=== PATIENT | male | born 1950 | race Caucasian/White ===

== ENCOUNTER → 2020-09-23 | Outpatient (CLI) | payer MEDICARE ==
--- NOTE | 2020-09-23 16:54 | RAD ---
CT abdomen pelvis without contrast dated 09/23/2020. No comparison available. Clinical data indication: Right inguinal mass. History of prior nephrectomy. TECHNIQUE: Contiguous axial imaging the abdomen pelvis performed without the administration of IV or oral contra st. One or more of the following individualized dose reduction techniques were utilized for this examinat ion: 1. Automated exposure control 2. Adjustment of the mA and/or kV according to patient size 3. Use of iterative reconstruction technique. FINDINGS: Limited images of lung bases are clear. Heart size within normal limits. No pleural or pericardial ef fusion. Solid abdominal viscera not well evaluated in the absence of contrast material. There are couple well -circumscribed low-density foci in the left and right lobe liver that likely represent cysts or other benign lesions. No biliary ductal dilatation. The gallbladder is unremarkable. Spleen is normal in size. Pancreas, adrenal glands unremarkable. The right kidney is surgically absen t. There is some focal cortical scarring at the lower pole left kidney. No stone or hydronephrosis. There is a prominent right inguinal hernia that contains a portion of the sigmoid colon. There is inf lammatory stranding in the hernia sac with a couple of the inflamed appearing diverticula. No evidenc e of perforation or abscess at this time. There is a small amount of fluid in the hernia sac. A porti on of the urinary bladder extends into the hernia sac. No proximal small bowel dilation. The colon is otherwise unremarkable. Scattered diverticula throughout. Appendix normal in caliber. No ascites or lymphadenopathy. Images of pelvis show nondistended urinary bladder. Prostate gland is upper limits of normal in size. There is a small left inguinal hernia containing only fat. No free fluid or lymphadenopathy. Bone windows show no acute findings. Multilevel spondylosis. IMPRESSION: 1. There is a prominent right inguinal hernia containing a portion of the sigmoid colon. Inflammatory changes in the hernia sac with inflamed appearing diverticula. This likely represents acute divertic ulitis within the hernia sac. No localized perforation or abscess at this time. No evidence of bowel obstruction. 2. There is a small left inguinal hernia containing only fat. 3. Normal appendix. 4. Small amount of free fluid within the right inguinal hernia sac. A portion of the urinary bladder also extends into the right inguinal hernia sac. Electronically signed by: Gregory Garcia MD (09/23/2020 4:51 PM) [id number]
== END ==
LOC: CT 16:07
PROVIDERS: ATTEND Specialist
DX: K40.90 Unilateral inguinal hernia, without obstruction or gangrene, not specified as recurrent (principal); R19.00 Intra-abdominal and pelvic swelling, mass and lump, unspecified site
CPT/HCPCS: 74176